=== PATIENT | male | born 2000 | race Caucasian/White ===

== ENCOUNTER 2023-11-22 12:16 | Emergency (ER) | payer OTHER ==
[~2023-11-22] VITALS: Ht 165.1 cm; Wt 86.2 kg
[2023-11-22 12:24] VITALS: BP 114/70; PULSE 108; RESP 19; TEMP 98.3; O2SAT 99
[2023-11-22] MEDS: KETOROLAC 30 MG/ML VIAL IM ONE (12:56)
[2023-11-22] MEDS ORDERED: LID5T TP (13:47)
[2023-11-22] MEDS ORDERED: NAPR-54 PO (13:47)
[2023-11-22] MEDS ORDERED: CYCL-711 PO (13:47)
== END 2023-11-22 14:00 | disposition home or self-care (01) ==
LOC: MED 12:16
DX: S93.491A Sprain of other ligament of right ankle, initial encounter (principal); S20.213A Contusion of bilateral front wall of thorax, initial encounter; S80.02XA Contusion of left knee, initial encounter; V49.88XA Car occupant (driver) (passenger) injured in other specified transport accidents, initial encounter; Y93.89 Activity, other specified; Y92.89 Other specified places as the place of occurrence of the external cause; Y99.8 Other external cause status
CPT/HCPCS: 71111; 73562; 73610; 96372; 99284; J1885